=== PATIENT | female | born 1990 | race American Indian/Alaskan Native ===

== ENCOUNTER 2018-07-21 09:43 | Emergency (ER) | payer SELFPAY ==
[2018-07-21 09:52] VITALS: BP 120/79
[2018-07-21 10:36] LABS: Bilirubin,Urine NEG (Negative); Blood,Urine MOD (Negative); Color,Urine Yellow (Yellow); Mucus,Urine 1+ /HPF; Protein,Urine <15 mg/dL mg/dL (Negative); Urobilinogen,Urine < 2.0 mg/dL (<2.0)
[2018-07-21 10:37] LABS: HCG Qualitative,Urine Negative (Negative)
--- NOTE | 2018-07-21 11:04 | Emergency Department Report ---
ED Abdominal Pain HPI - General Chief Complaint: Nausea/Vomiting/Diarrhea Stated Complaint: STOMACH PAIN Time Seen by Provider: 07/21/18 10:58 Source: patient Mode of arrival: Ambulatory Limitations: No Limitations - History of Present Illness Initial Comments: Patient is 27 years old female with no significant past medical history. Patient presented to the ER complaining of upper abdominal pain, associated with nausea and vomiting mainly in the morning and disappear after that. Patient also complaining of a watery diarrhea. Patient's symptoms being going on for 2 weeks now. Patient denied any fever or chills. No urinary symptoms or vaginal discharge. MD Complaint: abdominal pain - Related Data Allergies Allergy/AdvReac Type Severity Reaction Status Date / Time No Known Allergies Allergy Unverified 07/21/18 09:44 ED Review of Systems ROS: Stated complaint: STOMACH PAIN Other details as noted in HPI Comment: All other systems reviewed and negative Respiratory: denies: shortness of breath Cardiovascular: denies: chest pain Gastrointestinal: abdominal pain, nausea, vomiting, diarrhea. denies: constipation, hematemesis, melena, hematochezia Musculoskeletal: denies: back pain Neurological: denies: headache, weakness ED Past Medical Hx - Past Medical History Previous Medical History?: No - Surgical History Past Surgical History?: No - Social History Smoking Status: Never Smoker Substance Use Type: Marijuana ED Physical Exam - General Limitations: No Limitations General appearance: alert, in no apparent distress - Head Head exam: Present: atraumatic, normocephalic, normal inspection - Eye Eye exam: Present: normal appearance, PERRL - ENT ENT exam: Present: normal exam, normal orophraynx, mucous membranes moist - Respiratory Respiratory exam: Present: normal lung sounds bilaterally - Cardiovascular Cardiovascular Exam: Present: regular rate, normal rhythm, normal heart sounds - GI/Abdominal GI/Abdominal exam: Present: soft, normal bowel sounds. Absent: distended, tenderness, guarding, rebound, rigid, mass, bruit, pulsatile mass, hernia - Extremities Exam Extremities exam: Present: normal inspection, full ROM, normal capillary refill - Neurological Exam Neurological exam: Present: alert, oriented X3, CN II-XII intact, normal gait - Psychiatric Psychiatric exam: Present: normal mood - Skin Skin exam: Present: warm, intact, normal color ED Course Vital Signs 07/21/18 09:50 Temperature 98.5 F Pulse Rate 96 H Respiratory 16 Rate Blood Pressure 120/79 O2 Sat by Pulse 99 Oximetry ED Medical Decision Making - Lab Data Result diagrams: 07/21/18 11:27 07/21/18 11:27 - Medical Decision Making Labs reviewed and is unremarkable. test is negative. Patient's symptoms is most likely related to gastroenteritis. I prescribed Zofran and advised the patient follow-up with her primary care physician in the next 2-3 days and to return to the ER if symptoms are not improved. Critical care attestation.: If time is entered above; I have spent that time in minutes in the direct care of this critically ill patient, excluding procedure time. ED Disposition Clinical Impression: Abdominal pain, Nausea and vomiting Disposition: -01 TO HOME OR SELFCARE Is pt being admited?: No Condition: Stable Instructions: Abdominal Pain (ED), Acute Nausea and Vomiting (ED) Referrals: AUSTYN BAIRD MD [Primary Care Provider] - 3-5 Days
[2018-07-21 11:49] LABS: Basophils % (Auto) 0.3 % (0.0-1.8); Eosinophils % (Auto) 0.3 % (0.0-4.3); Hematocrit 39.2 % (30.3-42.9); Hemoglobin 13.6 gm/dl (10.1-14.3); Lymphocytes # (Auto) 0.8 K/mm3 (1.2-5.4); Lymphocytes % (Auto) 12.6 % (13.4-35.0); Mean Corpuscular HGB Conc 35 % (30-34); Mean Corpuscular Volume 99 fl (79-97); Monocytes # (Auto) 0.3 K/mm3 (0.0-0.8); Monocytes % (Auto) 4.5 % (0.0-7.3); Platelet Count 273 K/mm3 (140-440); Red Blood Count 3.96 M/mm3 (3.65-5.03); Red Cell Distribution Width 12.5 % (13.2-15.2)
[2018-07-21 11:51] LABS: BUN/Creatinine Ratio 14; Blood Urea Nitrogen 10 mg/dL (7-17); Calcium 9.1 mg/dL (8.4-10.2); Hemolysis Index 11
== END 2018-07-21 12:38 | disposition home or self-care (01) ==
LOC: ED 09:43
DX: R10.10 Upper abdominal pain, unspecified (principal); R11.2 Nausea with vomiting, unspecified; R19.7 Diarrhea, unspecified; F12.10 Cannabis abuse, uncomplicated
CPT/HCPCS: 36415; 80048; 81001; 81025; 83690; 84702; 85025

== ENCOUNTER 2018-11-19 12:01 | Emergency (ER) | payer MEDICAID ==
[2018-11-19 12:11] VITALS: BP 123/74
--- NOTE | 2018-11-19 12:13 | Event Note ---
ED Screening Note Date of service: 11/19/18 Time: 12:06 ED Screening Note: This is a 28 y.o. F. that presents to the ER with vaginal bleeding x 2 days. Patient reports being 11 weeks . Patient went to [facility] yesterday and informed of active miscarriage. States she didn't feel comfortable with what they told her so she followed up with her OBGYN [facility] yesterday. States she was told she had retained products and to return to ER if worsening pain. LMP 09/04/2018 Patient reports pelvic cramps currently that is 02/17. This initial assessment/diagnostic orders/clinical plan/treatment(s) is/are subject to change based on patients health status, clinical progression and re- assessment by fellow clinical providers in the ED. Further treatment and workup at subsequent clinical providers discretion. Patient/guardian urged not to elope from the ED as their condition may be serious if not clinically assessed and managed. Initial orders include: Labs and OB US
[2018-11-19 13:11] LABS: Bilirubin,Urine NEG (Negative); Blood,Urine NEG (Negative); Color,Urine Yellow (Yellow); Mucus,Urine FEW /HPF; Protein,Urine <15 mg/dL mg/dL (Negative); Urobilinogen,Urine < 2.0 mg/dL (<2.0); WBC,Urine < 1.0 /HPF (0.0-6.0)
== END 2018-11-19 13:05 | disposition left against medical advice (07) ==
LOC: ED 12:01
DX: O26.891 Other specified pregnancy related conditions, first trimester (principal)
CPT/HCPCS: 81001

== ENCOUNTER 2018-11-23 08:23 | Day surgery (SDC) | payer MEDICAID ==
--- NOTE | 2018-11-22 17:56 | History and Physical Report ---
History of Present Illness Date of examination: 11/21/18 Chief complaint: Incomplete History of present illness: Pt is a 28 year old primigravida who was diagnosed with a missed on 11/16/18. After being offered expectant vs medical vs surgical management the patient elected elective management. Subsequently she began to have intermittently heavy bleeding and elected to proceed with surgical management. Past History Past Medical History: no pertinent history Past Surgical History: no surgical history Social history: no significant social history - Obstetrical History : 1 Medications and Allergies Allergies Allergy/AdvReac Type Severity Reaction Status Date / Time No Known Allergies Allergy Unverified 07/21/18 09:44 Home Medications Medication Instructions Recorded Confirmed Last Taken Type Ondansetron [Zofran Odt] 4 mg PO Q8HR PRN #14 tab.rapdis 07/21/18 Unknown Rx Active Meds: Active Medications Lactated Ringer's (Lactated Ringers) 1,000 mls @ 100 mls/hr IV DIRECT JAZIEL Doxycycline Hyclate 100 mg/ (Sodium Chloride) 250 mls @ 250 mls/hr IV Q12HR JAZIEL; Protocol Methylergonovine Maleate (Methergine) 0.2 mg IM ONCE ONE Stop: 11/23/18 08:01 Midazolam HCl (Versed) 2 mg IV PREOP NR Stop: 11/24/18 23:59 Misoprostol (Cytotec) 800 mcg OH ONCE ONE Stop: 11/23/18 08:01 Review of Systems All systems: negative - Physical Exam Breasts: Positive: deferred Cardiovascular: Regular rate Lungs: Positive: Clear to auscultation Abdomen: Positive: soft Extremities: Positive: normal Results All other labs normal. Assessment and Plan A: Incomplete at 7 wks P: Proceed with suction dilation and curettage and other indicated procedures.
[~2018-11-23 08:23] MED LIST: CYTOTEC PR ONE; DOXYCYCLINE HYCLATE 100 MG in NACL 0.9% 250ML 250 ML IV SCH; LACTATED RINGERS 1,000 ML IV SCH; METHERGINE IM ONE
[2018-11-23 09:31] LABS: Hematocrit 37.2 % (30.3-42.9); Hemoglobin 12.7 gm/dl (10.1-14.3); Mean Corpuscular HGB Conc 34 % (30-34); Mean Corpuscular Volume 99 fl (79-97); Platelet Count 257 K/mm3 (140-440); Red Blood Count 3.74 M/mm3 (3.65-5.03)
--- NOTE | 2018-11-23 09:42 | Ultrasound Report ---
FIRSTTRIMESTER OBSTETRIC ULTRASOUND HISTORY: Retained products of conception, demise COMPARISON: None. TECHNIQUE: Routine transabdominal OB ultrasound performed. FINDINGS: The uterus is retroflexed and measures 9.0 x 6.9 x 5.6 cm. A moderate size posterior wall fibroid aki sures up to 4.2 cm in diameter. The cervix is obscured. An intrauterine gestational sac containing a small pole and yolk sac is identified. [place]-rump length measures 8.8 mm which correlates with a 6 week 6 day . No heart rate could be demonstrated on ultrasound. No subchorionic he morrhage. The ovaries were not imaged. No pelvic fluid collection or mass is identified. Additional findings: None. IMPRESSION Intrauterine demise. Signer Name: Clarence Reid Jr, MD Signed: 11/23/2018 9:38 AM Workstation Name: [id number]
--- NOTE | 2018-11-23 10:02 | Anesthesia Consultation ---
Anesthesia Consult and Med Hx Date of service: 11/23/18 - Airway Anesthetic Teeth Evaluation: Partials ROM Head & Neck: Adequate Mental/Hyoid Distance: Adequate Mallampati Class: Class II Intubation Access Assessment: Good - Pulmonary Exam CTA: Yes - Cardiac Exam Cardiac Exam: RRR - Pre-Operative Health Status ASA Pre-Surgery Classification: ASA1 Proposed Anesthetic Plan: General (Missing upper)
--- NOTE | 2018-11-23 10:04 | Anesthesia Day of Surgery ---
Anesthesia Day of Surgery - Day of Surgery Patient Examined: Yes Patient H&P Reviewed: Yes Patient is NPO: Yes
[2018-11-23] MEDS ORDERED: DILAUDID IV PRN (10:08)
[2018-11-23] MEDS ORDERED: ZOFRAN IV PRN (10:08)
[2018-11-23] MEDS ORDERED: CYTOTEC ONE (11:26)
[2018-11-23] MEDS ORDERED: DIPRIVAN 10 MG/ML IV ONE (11:31)
[2018-11-23] MEDS ORDERED: XYLOCAINE MPF 2% ONE (11:32)
[2018-11-23] MEDS ORDERED: SUBLIMAZE ONE (11:32)
[2018-11-23] MEDS ORDERED: DECADRON ONE (11:33)
[2018-11-23] MEDS ORDERED: ZOFRAN ONE (11:33)
[2018-11-23] MEDS ORDERED: VERSED ONE (11:47)
[2018-11-23] MEDS ORDERED: NACL 0.9% IR ONE (12:10)
[2018-11-23] MEDS ORDERED: CYTOTEC PR ONE (12:49)
--- NOTE | 2018-11-23 12:54 | Operative Report ---
Operative Report Operative Report: Date of Procedure: November 23, 2018 Preoperative Diagnosis: 1) Incomplete at 7 wks Postoperative Diagnosis: Same 2) Fibroid Uterus Procedure: Suction Dilation and Curettage Surgeon: Antonette Cramer MD Anesthesia: General with LMA Findings: 1) Small retroverted uterus with brown discharge EBL: 150 mL Specimen: Products of conception to pathology Drains: None Medications: Methegine 0.2 mg IM and Misoprostol 800 mcg per rectum Complications: None. Counts correct x 3 Disposition: Stable to PACU Indication for Procedure: Pt is a 28 year old primigravida who presents for surgical management of incomplete at 7 wks. Operation in detail: After the risks, benefits, alternatives, complications of the procedure were explained to the patient, she gave informed consent for the procedure. She was subsequently taken to the operating room with her IV noted to be running well and placed in the dorsal supine position. SCDs are noted to be in place and functioning. General anesthesia was then induced without difficulty. The patient was then placed in the dorsal lithotomy position and prepped and draped in normal sterile fashion. A timeout was performed. An exam under anesthesia revealed a small mobile retroverted uterus. A rubber catheter was used to drain the bladder of clear urine. A bivalve speculum was placed into the vagina for adequate visualization of the cervix. A single-tooth tenaculum was placed on the anterior lip of the cervix. The cervix was serially dilated to a number 21 Gutiérrez dilator to accomodate a size 7 cannula. A size 7 rigid cannula was then used to perform a suction curettage of the endometrial cavity. The products of conception were sent to pathology. An ultrasound was performed during the procedure that confirmed a thin endometrial stripe. The patient then received an injection of Methergine 0.2 mg IM for hemostasis. Hemostasis was noted. The tenaculum was removed from the cervix. At this time all instruments were removed from the vagina atraumatically. She then received Misoprostol 800 g per rectum. At this time the procedure was ended. The patient was placed the dorsal supine position and extubated without difficulty. She was subsequently taken to the PACU in stable condition. The patient tolerated the procedure well. All instrument and lap counts were correct 2.
--- NOTE | 2018-11-23 13:03 | Short Stay Summary ---
Short Stay Documentation Date of service: 11/23/18 - History Social history: no significant social history - Allergies and Medications Current Medications: Allergies No Known Allergies Allergy (Unverified 07/21/18 09:44) Home Medications Medication Instructions Recorded Confirmed Last Taken Type Ondansetron [Zofran Odt] 4 mg PO Q8HR PRN #14 tab.rapdis 07/21/18 11/23/18 Unknown Rx Active Medications Hydromorphone HCl (Dilaudid) 0.25 mg IV Q10MIN PRN PRN Reason: Pain, Moderate (4-6) Lactated Ringer's (Lactated Ringers) 1,000 mls @ 100 mls/hr IV DIRECT JAZIEL Doxycycline Hyclate 100 mg/ (Sodium Chloride) 250 mls @ 250 mls/hr IV Q12HR JAZIEL; Protocol Midazolam HCl (Versed) 2 mg IV PREOP NR Stop: 11/24/18 23:59 Ondansetron HCl (Zofran) 4 mg IV ONCE PRN PRN Reason: Nausea And Vomiting - Physical exam Breasts: deferred - Brief post op/procedure progress note Date of procedure: 11/23/18 Pre-op diagnosis: Incomplete Post-op diagnosis: same Procedure: Suction Dilation and Curettage Anesthesia: GETA Findings: 1) Small retroverted uterus with brown discharge Surgeon: SHALONDA CRAMER Estimated blood loss: other (150 mL) Pathology: list (products of conception) Specimen disposition: to lab Condition: stable - Hospital course Hospital course: Pt underwent suction dilation and curettage which she tolerated well. She was observed in the PACU until she met discharge criteria. She will follow up in the office in [address] Cramer. - Disposition Condition at discharge: Stable Disposition: DC-01 TO HOME OR SELFCARE - Discharge Diagnoses (1) Incomplete Status: Acute Short Stay Discharge Plan Activity: other (Nothing in vagina, no tub baths for 4 weeks ) Weight Bearing Status: Full Weight Bearing Diet: regular Follow up with: BRIT SANTOS [Other] - 7 Days SHALONDA CRAMER MD [Staff Physician] - 7 Days (Please call to schedule a postop appt ) Prescriptions: Doxycycline Hyclate [Doxycycline Hyclate TAB] 100 mg PO Q12HR #14 tab Ibuprofen [Motrin] 800 mg PO Q8HR PRN #30 tablet PRN Reason: Pain, Moderate (4-6) oxyCODONE /ACETAMINOPHEN [Percocet 5/325] 1 tab PO Q6HR PRN #30 tablet PRN Reason: Pain
[2018-11-23] MEDS ORDERED: PERCOCET 5/325 PO PRN (13:39)
[2018-11-23] MEDS ORDERED: PERCOCET 5/325 ONE (13:44)
[2018-11-23 14:03] VITALS: BP 121/81
--- NOTE | 2018-11-23 14:30 | Ultrasound Report ---
ULTRASOUND-GUIDED INTRAOPERATIVE HISTORY: demise FINDINGS: Ultrasound guidance was provided by radiology. 5 transabdominal ultrasound images of the ut erus are presented following D and C by POND WORKER. The endometrial stripe measures a maximum of 9.8 mm n ear the uterine fundus. No obvious retained products of conception are identified on transabdominal u ltrasound. The uterus appears normal size, contour and echotexture. No pelvic fluid collection. IMPRESSION: The endometrium measures 9.8 mm in thickness following D and C. Signer Name: Clarence Reid Jr, MD Signed: 11/23/2018 2:25 PM Workstation Name: [id number]
--- NOTE | 2018-11-23 17:49 | Post Anesthesia Evaluation ---
- Post Anesthesia Evaluation Patient Participated: Yes Airway Patent: Yes Nausea/Vomiting: No Temp > 96.8F: Yes Pain Manageable: Yes Adequeate Hydration: Yes Anesthesia Complications: No Block Receding Appropriately: Not Applicable Patient on Ventilator: No
[2018-11-24] MEDS ORDERED: VERSED IV NR (06:00)
== END 2018-11-23 08:24 | disposition home or self-care (01) ==
LOC: OR 08:23
PROVIDERS: ATTEND Obstetrics & Gynecology
DX: O03.9 Complete or unspecified spontaneous abortion without complication (principal); Z79.899 Other long term (current) drug therapy; Z98.890 Other specified postprocedural states
CPT/HCPCS: 36415; 59812; 76801; 76998; 85027; 86850; 86900; 86901; 88305; J1100; J1170; J2210; J2250; J2405; J2704; J3010; J7050; J7120